=== PATIENT | female | born 1970 | race Asian ===

== ENCOUNTER 2019-10-05 21:16 | Emergency (ER) | payer SELFPAY ==
[~2019-10-05] VITALS: Ht 172.7 cm; Wt 72.6 kg
[2019-10-05 22:08] LABS: Basophils # (auto) 0.1 10 ^3/uL (0-0.2); Basophils % (auto) 0.8 % (0.0-2.0); Eosinophils # (auto) 0.1 10 ^3/uL (0-0.8); Eosinophils % (auto) 1.8 % (0.0-7.0); Hematocrit 40.2 % (36.0-46.0); Hemoglobin 13.1 g/dL (12.2-16.2); Lymphocytes # (auto) 2.6 10 ^3/uL (0.4-5.4); Mean Corpuscular Hemoglobin 29.4 pg (28.0-32.0); Mean Corpuscular Hgb Conc. 32.7 g/dL (32.0-36.0); Mean Corpuscular Volume 89.9 fL (80.0-100.0); Monocytes # (auto) 0.5 10 ^3/uL (0-1.3); Monocytes % (auto) 5.9 % (0.0-12.0); Neutrophils % (auto) 60.5 % (37.0-80.0); Nucleated Red Blood Cells % 0.1 %; Platelet Count (auto) 218 10^3/uL (140-450); Red Blood Cells 4.47 10^6/uL (4.0-5.20); Red Cell Distribution Width 13.5 % (11.8-14.3); White Blood Cell 8.2 10^3/uL (4.4-10.8)
[2019-10-05 22:27] LABS: Albumin 3.6 g/dL (3.4-5.0); Calcium 8.9 mg/dL (8.5-10.1); Potassium 3.9 mmol/L (3.5-5.1)
[2019-10-05 22:30] LABS: BUN/Creatinine Ratio 17.6
[2019-10-05 22:43] LABS: Bilirubin, Total 0.5 mg/dL (0.2-1.0); Total Protein 7.7 g/dL (6.4-8.2)
[2019-10-05 22:57] LABS: Amylase 76 U/L (25-115); Lipase 139 U/L (73-393)
[2019-10-05] MEDS ORDERED: PANTOPRAZOLE 40 MG TAB PO ONE (23:00)
[2019-10-05] MEDS ORDERED: ONDANSETRON ODT 4 MG TAB PO ONE (23:00)
[2019-10-05] MEDS ORDERED: traMADol HCL 50 MG TAB PO ONE (23:00)
[2019-10-06 00:19] LABS: Urine Bacteria NONE SEEN /hpf (None Seen); Urine Blood 3+ /uL (Negative); Urine Mucus FEW (None Seen); Urine Specific Gravity 1.025 (1.001-1.035); Urine WBC 6 /hpf (0 - 5)
[2019-10-06 00:32] LABS: Alcohol, Urine < 3.0 mg/dL (0-10); Amphetamine Screen, Urine NEGATIVE (NEGATIVE); Barbiturate Scree,Urine NEGATIVE (NEGATIVE); Benzodiazephine Screen, Urine NEGATIVE (NEGATIVE); Cannabinoid Screen, Urine NEGATIVE (NEGATIVE); Cocaine Screen, Urine NEGATIVE (NEGATIVE); Opiate Scree,Urine NEGATIVE (NEGATIVE); Phencyclidine Screen, Urine NEGATIVE (NEGATIVE)
[2019-10-06 01:15] VITALS: BP 145/69
== END 2019-10-06 01:19 | disposition home or self-care (01) ==
LOC: ER 21:19
DX: K29.70 Gastritis, unspecified, without bleeding (principal); K80.20 Calculus of gallbladder without cholecystitis without obstruction; N20.0 Calculus of kidney; Z88.5 Allergy status to narcotic agent; Z88.6 Allergy status to analgesic agent
CPT/HCPCS: 36415; 74176; 76705; 80053; 80307; 81001; 82150; 83690; 85025; 93005; 99285; Q0162

== ENCOUNTER 2021-11-20 20:04 | Emergency (ER) | payer MEDICAID ==
[~2021-11-20] VITALS: Ht 172.7 cm; Wt 71.4 kg
[2021-11-20 20:31] VITALS: BP 146/84
== END 2021-11-20 22:25 | disposition left against medical advice (07) ==
LOC: ER 20:04
DX: S50.861A Insect bite (nonvenomous) of right forearm, initial encounter (principal); Z53.21 Procedure and treatment not carried out due to patient leaving prior to being seen by health care provider

== ENCOUNTER 2023-12-21 16:13 | Emergency (ER) | payer MEDICAID ==
[~2023-12-21] VITALS: Ht 172.7 cm; Wt 75.1 kg
[2023-12-21 16:34] LABS: Urine Bacteria None Seen /hpf (None Seen)
[2023-12-21 16:55] LABS: Urine Blood Negative /uL (Negative); Urine Clarity Clear (Clear); Urine Color Colorless (Yellow); Urine Protein, UAD Negative (Negative); Urine Specific Gravity 1.005 (1.001-1.035); Urine Urobilinogen Normal (Negative); Urine WBC 2 /hpf (0 - 5); Urine pH 6.5 (5.0-9.0)
[2023-12-21 17:02] LABS: Basophils # (auto) 0 10 ^3/uL (0-0.2); Basophils % (auto) 0.5 % (0.0-2.0); Eosinophils # (auto) 0.1 10 ^3/uL (0-0.8); Eosinophils % (auto) 0.9 % (0.0-7.0); Hematocrit 40.7 % (36.0-46.0); Hemoglobin 13.8 g/dL (12.2-16.2); Lymphocytes # (auto) 1.5 10 ^3/uL (0.4-5.4); Lymphocytes % (auto) 15.3 % (10.0-50.0); Mean Corpuscular Hemoglobin 29.9 pg (28.0-32.0); Mean Corpuscular Hgb Conc. 33.9 g/dL (32.0-36.0); Mean Corpuscular Volume 88.3 fL (80.0-100.0); Monocytes # (auto) 0.4 10 ^3/uL (0-1.3); Monocytes % (auto) 4.3 % (0.0-12.0); Neutrophils # (auto) 7.7 10 ^3/uL (1.6-8.6); Nucleated Red Blood Cells % 0.1 %; Platelet Count (auto) 201 10^3/uL (140-450); Red Cell Distribution Width 13.1 % (11.8-14.3); White Blood Cell 9.7 10^3/uL (4.4-10.8)
[2023-12-21 17:14] LABS: INR 1.01 (0.9-1.15); Partial Thromboplastin Time 27.9 SEC (24.5-34.5); Prothrombin Time 10.7 sec (9.3-11.8)
[2023-12-21 17:16] LABS: Alanine Aminotransferase 16 U/L (7-40); Albumin 4.4 g/dL (3.2-4.8); Alkaline Phosphatase 96 U/L (46-116); Anion Gap 7 (5-15); Aspartate Aminotransferase 18 U/L (13-40); BUN/Creatinine Ratio 12.5 (10.0-20.0); Bilirubin, Total 0.5 mg/dL (0.2-1.0); Blood Urea Nitrogen 10 mg/dL (9-23); Calcium 9.6 mg/dL (8.7-10.4); Carbon Dioxide 28 mmol/L (20-31); Chloride 105 mmol/L (98-107); Glucose 109 mg/dL (74-106); Potassium 3.6 mmol/L (3.5-5.1); Sodium 140 mmol/L (136-145)
[2023-12-21 17:17] LABS: Total Protein 7.7 g/dL (5.7-8.2)
[2023-12-21 18:01] VITALS: TEMP 99
[2023-12-21 18:06] VITALS: PULSE 97; RESP 16; O2SAT 96
[2023-12-21] MEDS: PANTOPRAZOLE 40 MG TAB PO ONE (19:00)
[2023-12-21 19:03] VITALS: BP 164/110; PULSE 98; RESP 16; O2SAT 96
== END 2023-12-21 19:10 | disposition home or self-care (01) ==
LOC: ER 16:13
DX: K62.5 Hemorrhage of anus and rectum (principal); K59.00 Constipation, unspecified; K60.2 Anal fissure, unspecified; Z98.890 Other specified postprocedural states; Z88.8 Allergy status to other drugs, medicaments and biological substances
CPT/HCPCS: 36415; 74176; 80053; 81001; 83605; 85025; 85610; 85730; 86850; 86900; 86901

== ENCOUNTER 2024-10-27 03:49 | Inpatient (IN) | payer MEDICAID ==
[2024-10-27] VITALS (8 sets, daily range): BP systolic 118–141; BP diastolic 62–74; PULSE 78–96; RESP 15–18; TEMP 97.9–98.7; O2SAT 94–98
[~2024-10-27] VITALS: Ht 172.7 cm; Wt 80.1 kg
--- NOTE | 2024-10-27 04:09 | ED.PDOC ---
General HPI Comments 54-year-old female came to ER for flank pains. Patient does have history of kidney stones and gallstones. States she woke up at 2:30 a.m., due to sudden onset left flank pains, associated with dysuria and inability to void since 2:30 a.m.. Noted 2 episodes of vomiting, anterior episodes of diarrhea. Symptoms p ersisted prompted check up to the ER. Upon arrival blood pressure was 197/104 mm Hg Chief Complaint: Flank Pain Time Seen by MD: 04:08 Primary Care Provider: PRESTON Reviewed notes: Nurses Notes Allergies: Coded Allergies: Aspirin (Verified Allergy, Unknown, 10/05/19) Codeine (Verified Allergy, Unknown, 10/05/19) Morphine (Verified Allergy, Unknown, 12/21/23) Information Source: Patient Mode of Arrival: Ambulatory Severity: Moderate Inability to void: Moderate Timing: Hours Duration: Since onset Has not urinated for: Hours Prehospital treatment: None Onset: Spontaneous Symptoms: Inability to void History of: Kidney stone Location: (L)Flank associated signs and symptoms: Abdominal Pain, Nausea, Vomiting, Flank Pain, Dysuria, Inability to Void Past Medical History PAST MEDICAL HISTORY: Gallstones, Kidney Stones Surgical History: Denies all surgeries SENIOR DIGITAL DESIGNER History: No Pertinent SENIOR DIGITAL DESIGNER History Family History Family History: Reviewed,noncontributory to illness Social History Smoker: Non-Smoker Alcohol: Denies ETOH Use Drugs: Denies Drug Use Lives In: Home Constitutional: denies: chills, diaphoresis, fatigue, fever, malaise, sweats, w eakness, others EENTM: denies: blurred vision, double vision, ear bleeding, ear discharge, ear drainage, ear pain, ear ringing, eye pain, eye redness, hearing loss, mouth pain, mouth swelling, nasal discharge, nose bleeding, nose congestion, nose pain, photophobia, tearing, throat pain, throat swelling, voice changes, others Respiratory: denies: cough, hemoptysis, orthopnea, SOB at rest, shortness of breath, SOB with excertion, stridor, wheezing, others Cardiovascular: denies: chest pain, dizzy spells, diaphoresis, Dyspnea on exertion, edema, irregular heart beat, left arm pain, lightheadedness, palpitations, PND, syncope, others Gastrointestinal: denies: abdomen distended, abdominal pain, blood streaked bowels, constipated, diarrhea, dysphagia, difficulty swallowing, hematemesis, melena, nausea, poor appetite, poor fluid intake, rectal bleeding, rectal pain, vomiting, others Genitourinary: reports: dysuria, flank pain, others (Urinary retention); denies: abnormal vagina bleeding, burning, dyspareunia, frequency, hematuria, incontinence, pain, , vagina discharge, urgency Neurological: denies: dizziness, fainting, headache, left sided numbness, left sided weakness, numbness, paresthesia, pre-existing deficit, right sided numbness, right sided weakness, seizure, speech problems, tingling, tremors, weakness, others Musculoskeletal: denies: back pain, gout, joint pain, joint swelling, muscle pain, muscle stiffness, neck pain, others Integumetry: denies: bruises, change in color, change in hair/nails, dryness, laceration, lesions, lumps, rash, wounds, others Allergic/Immunocompromised: denies: Difficulty Healing, Frequent Infections, Hives, Itching, others Hematologic/Lymphatic: denies: anemia, blood clots, easy bleeding, easy bruis ing, swollen glands, others Endocrine: denies: excessive hunger, excessive sweating, excessive thirst, exc essive urination, flushing, intolerance to cold, intolerance to heat, unexplained weight gain, unexplained weight loss, others Psychiatric: denies: anxiety, bipolar disorder, depression, hopeless, panic disorder, schizophrenia, sleepless, suicidal, others Physical Exam General Appearance: No Apparent Distress, Normal HEENT: Normal ENT Inspection, Pharynx Normal, TMs Normal Neck: Full Range of Motion, Non-Tender, Normal, Normal Inspection Respiratory: Chest Non-Tender, Lungs Clear, No Accessory Muscle Use, No Resp iratory Distress, Normal Breath Sounds Cardiovascular: No Edema, No JVD, No Murmur, No Gallop, Normal Peripheral Pulses, Regular Rate/Rhythm Breast Exam: Deferred Gastrointestinal: No Organomegaly, Non Tender, No Pulsatile Mass, Normal Bowel Sounds, Soft Genitalia: Deferred Pelvic: Deferred Rectal: Deferred Extremities: No calf tenderness, Normal capillary refill, Normal inspection, Normal range of motion, Non-tender, No pedal edema Musculoskeletal : Apperance: Normal Neurologic: Alert, linux 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 Was a procedure done?: No Differential Diagnosis Kidney stone (Female): Musculoskeletal pain, Ovarian torsion, Pancreatitis, Pyelonephritis, Renal failure, Strain, Urinary obstruction, Urolithiasis Urinary Problem (Female): Pyelonephritis, Urinary retention, Urolithiasis, UTI X-Ray, Labs, Meds, VS Vital Signs Date Time Temp Pulse Resp B/P (MAP) Pulse Ox O2 Delivery O2 Flow Rate FiO2 10/27/24 03:52 98.1 80 18 197/105 98 98.1 Lab Test 10/27/24 04:53 10/27/24 04:33 Range/Units Urine Color Colorless Yellow Urine Clarity Ex.turbid Clear Urine pH 6.0 5.0-9.0 Urine Specific [place] 1.019 1.001-1.035 Urine Protein Trace H Negative Urine Ketones Negative Negative Urine Blood 3+ H Negative /uL Urine Nitrite Negative Negative Urine Bilirubin Negative Negative Urine Urobilinogen Normal Negative mg/dL Urine Leukocyte Esterase 3+ Negative /uL Urine RBC 225 0 - 4 /hpf Urine Microscopic WBC 16 H 0-5 /HPF Urine Squamous Epithelial Cells Few <5 /hpf Urine Bacteria None seen None Seen /hpf Urine Mucus Few None Seen Urine Glucose Normal Normal mg/dL White Blood Count 8.0 4.4-10.8 10^3/uL Red Blood Count 4.76 4.0-5.20 10^6/uL Hemoglobin 14.3 12.2-16.2 g/dL Hematocrit 42.1 36.0-46.0 % Mean Corpuscular Volume 88.3 80.0-100.0 fL Mean Corpuscular Hemoglobin 30.0 28.0-32.0 pg Mean Corpuscular Hemoglobin Concent 34.0 32.0-36.0 g/dL Red Cell Distribution Width 13.6 11.8-14.3 % Platelet Count 223 140-450 10^3/uL Mean Platelet Volume 9.8 6.9-10.8 fL Neutrophils (%) (Auto) 75.1 37.0-80.0 % Lymphocytes (%) (Auto) 19.3 10.0-50.0 % Monocytes (%) (Auto) 4.0 0.0-12.0 % Eosinophils (%) (Auto) 0.9 0.0-7.0 % Basophils (%) (Auto) 0.7 0.0-2.0 % Neutrophils # (Auto) 6.0 1.6-8.6 10 ^3/uL Lymphocytes # (Auto) 1.5 0.4-5.4 10 ^3/uL Monocytes # (Auto) 0.3 0-1.3 10 ^3/uL Eosinophils # (Auto) 0.1 0-0.8 10 ^3/uL Basophils # (Auto) 0.1 0-0.2 10 ^3/uL Nucleated Red Blood Cells 0.2 % Sodium Level Pending Potassium Level Pending Chloride Level Pending Carbon Dioxide Level Pending Anion Gap Pending Blood Urea Nitrogen Pending Creatinine Pending Glomerular Filtration Rate Calc Pending BUN/Creatinine Ratio Pending Serum Glucose Pending Calcium Level Pending Total Bilirubin Pending Aspartate Amino Transferase (AST) Pending Alanine Aminotransferase (ALT) Pending Alkaline Phosphatase Pending Total Protein Pending Albumin Pending Lipase Pending Current Medications Medications (Trade) Dose Ordered Sig/Alanna Route Start Time Stop Time Status Last Admin Acetaminophen/ Hydrocodone Bitart ([place] 10/325MG Tab) 1 tab ONCE ONCE PO 10/27/24 04:15 10/27/24 04:16 DC 10/27/24 04:30 Ondansetron HCl ([place] Po) 4 mg ONCE ONCE PO 10/27/24 04:15 10/27/24 04:16 DC 10/27/24 04:30 Exam: CT CT AB PEL WO CON-NO ORAL OR IV History: Flank pain Comparison Study: CT CT AB PEL WO CON-NO ORAL OR IV on DOS: 12/21/23 Technique: Multidetector spiral CT of the abdomen and pelvis was performed from lung bases to pubic symphysis. Imaging was performed without intravenous contrast. Coronal and sagittal multiplanar reformats were obtained from the axial data set by the technologist. Radiation Dose : 1. Abdomen/Pelvis: CTDIvol 12.4 mGy, DLP 727.9 mGy*cm. Findings: Evaluation of vasculature and solid organs is limited due to lack of intravenous contrast use. Lung Bases: Lung bases are clear. Visualized portions of the heart and pericardium are unremarkable. Liver: The liver is normal in size. No focal lesions. Gallbladder and Biliary Tree: The gallbladder contains several gallstones. No intrahepatic or extrahepatic biliary ductal dilatation. Spleen: Unremarkable Pancreas: The pancreas is grossly unremarkable. Adrenal Glands: Unremarkable Kidneys: There is mild left hydronephrosis due to a 3 mm obstructing calculus in the left ureterovesical junction. There is a nonobstructive calculus in the lower pole of the left kidney measuring 2 mm. GI tract: The stomach is grossly normal in appearance. No evidence of small bowel wall thickening or abnormal dilatation to suggest bowel obstruction. Colonic diverticulosis without acute diverticulitis. The appendix is visualized and is normal. Peritoneum/mesentery/retroperitoneum. No evidence of free intraperitoneal air. No ascites. No evidence of suspicious lymphadenopathy. Abdominal Wall: Unremarkable. Vasculature: The visualized abdominal aorta is normal in size and caliber. Evaluation of abdominal and pelvic vessels is limited due to lack of intravenous contrast. Urinary Bladder: Grossly unremarkable for degree of distention. Pelvic Organs: Unremarkable Musculoskeletal: No aggressive focal bony lesions, acute fractures or dislocation. IMPRESSION: 1. Mild left hydronephrosis due to a 3 mm obstructing calculus in the left ureterovesical junction. Additional nonobstructive left nephrolithiasis. 2. Cholelithiasis. 3. Colonic diverticulosis without acute diverticulitis. Time of 1ST Reevaluation: 04:03 Reevaluation 1ST: Unchanged Patient Education/Counseling: Diagnosis, Treatment Family Education/Counseling: Diagnosis, Treatment SEPSIS Sepsis Screen Date sepsis recognized/suspect: Oct 27, 2024 Time Sepsis recognized/suspect: 035 Recent Procedure: No On Antibiotic Therapy: No Respiratory Rate >20: No Heart Rate >90: Yes Temp<36 C (96.8 F) or >38.3 C: No SBP <90 or MAP <65 mmHG: No New Acute Mental Status Change: No Is the patient on CPAP, BIPAP,: No Physician Orders Comprehensive Metabolic Panel (10/27/24 03:56) Lipase (10/27/24 03:56) Ct Ab Pel Wo Con-No Oral Or Iv (10/27/24 03:56) Straightcath If Unable To Void (10/27/24 04:29) Lactic Acid W/ Reflex Order (10/27/24 05:39) Blood Culture (10/27/24 05:39) Ceftriaxone Ivpb Rocephin (10/27/24 05:45) Vital Signs Date Time Temp Pulse Resp B/P (MAP) Pulse Ox O2 Delivery O2 Flow Rate FiO2 10/27/24 03:52 98.1 80 18 197/105 98 98.1 Laboratory Tests Test 10/27/24 04:33 White Blood Count 8.0 10^3/uL (4.4-10.8) Medications Medications Dose Ordered Sig/Alanna Route Start Time Stop Time Status Last Admin Dose Admin Acetaminophen/ Hydrocodone Bitart 1 tab ONCE ONCE PO 10/27/24 04:15 10/27/24 04:16 DC 10/27/24 04:30 Ondansetron HCl 4 mg ONCE ONCE PO 10/27/24 04:15 10/27/24 04:16 DC 10/27/24 04:30 Departure 1 Departure Time of Disposition: 05:40 Impression: Primary Impression: Ureteral calculus, left Additional Impression: UTI (urinary tract infection) Disposition: ADMITTED INPATIENT Admit to: Med Surg Condition: Guarded Comments 54-year-old female with dysuria and left flank pain. She appears to have a ureteral calculus in the left ureter with some hydronephrosis. She also has 3+ blood and 3+ leukocytes in her urine. I suspect UTI with a ureteral stone. Patient is still having pain on re-evaluation. Patient will need to be admitted for IV antibiotics and Urology consultation Critical Care Note Critical Care Time?: Yes (35 min-critical care time only) Critical care comment: Total critical care time: Approximately 36 minutes Due to a high probability of clinically significant, life threatening deterioration, the patient required my highest level of preparedness to intervene emergently and I personally spent this critical care time directly and personally managing the patient. This critical care time included obtaining a history; examining the patient; pulse oximetry; ordering and review of studies; arranging urgent treatment with development of a management plan; evaluation of patient's response to treatment; frequent reassessment; and, discussions with other providers. This critical care time was performed to assess and manage the high probability of imminent, life-threatening deterioration that could result in multi-organ failure. It was exclusive of separately billable procedures and treating other patients. Stability Stability form required: No Heart Score Heart Score: Heart Score Response (Comments) Value History N/A 0 EKG N/A 0 Age N/A 0 Risk Factors N/A 0 Troponin N/A 0 Total 0 I personally scribed for JENNIFER AUSTIN MD ([email or web address]) on 10/27/24 at 04:08. Electronically submitted by Ty Gonzalez ([facility]). I personally scribed for JENNIFER AUSTIN MD ([email or web address]) on 10/27/24 at 05:25. Electronically submitted by Ty Gonzalez ([facility]). JENNIFER AUSTIN MD Oct 27, 2024 04:08
[2024-10-27] MEDS: ONDANSETRON ODT 4 MG TAB PO ONE (04:30)
[2024-10-27] MEDS: HYDROcodone-ACET 10/325MG TAB PO ONE (04:30)
--- NOTE | 2024-10-27 04:36 | DVH ---
Exam: CT CT AB PEL WO CON-NO ORAL OR IV History: Flank pain Comparison Study: CT CT AB PEL WO CON-NO ORAL OR IV on DOS: 12/21/23 Technique: Multidetector spiral CT of the abdomen and pelvis was performed from lung bases to pubic s ymphysis. Imaging was performed without intravenous contrast. Coronal and sagittal multiplanar reform ats were obtained from the axial data set by the technologist. Radiation Dose : 1. Abdomen/Pelvis: CTDIvol 12.4 mGy, DLP 727.9 mGy*cm. Findings: Evaluation of vasculature and solid organs is limited due to lack of intravenous contrast use. Lung Bases: Lung bases are clear. Visualized portions of the heart and pericardium are unremarkable. Liver: The liver is normal in size. No focal lesions. Gallbladder and Biliary Tree: The gallbladder contains several gallstones. No intrahepatic or extrah epatic biliary ductal dilatation. Spleen: Unremarkable Pancreas: The pancreas is grossly unremarkable. Adrenal Glands: Unremarkable Kidneys: There is mild left hydronephrosis due to a 3 mm obstructing calculus in the left ureterovesi jerry junction. There is a nonobstructive calculus in the lower pole of the left kidney measuring 2 mm. GI tract: The stomach is grossly normal in appearance. No evidence of small bowel wall thickening or abnormal dilatation to suggest bowel obstruction. Colonic diverticulosis without acute diverticulitis . The appendix is visualized and is normal. Peritoneum/mesentery/retroperitoneum. No evidence of free intraperitoneal air. No ascites. No evidenc e of suspicious lymphadenopathy. Abdominal Wall: Unremarkable. Vasculature: The visualized abdominal aorta is normal in size and caliber. Evaluation of abdominal a nd pelvic vessels is limited due to lack of intravenous contrast. Urinary Bladder: Grossly unremarkable for degree of distention. Pelvic Organs: Unremarkable Musculoskeletal: No aggressive focal bony lesions, acute fractures or dislocation. IMPRESSION: 1. Mild left hydronephrosis due to a 3 mm obstructing calculus in the left ureterovesical junction. A dditional nonobstructive left nephrolithiasis. 2. Cholelithiasis. 3. Colonic diverticulosis without acute diverticulitis.
[2024-10-27 05:28] LABS: Urine Protein, UAD TRACE (Negative)
[2024-10-27 05:31] LABS: Hematocrit 42.1 % (36.0-46.0); Hemoglobin 14.3 g/dL (12.2-16.2); Mean Corpuscular Hemoglobin 30.0 pg (28.0-32.0); Mean Corpuscular Volume 88.3 fL (80.0-100.0); Nucleated Red Blood Cells % 0.2 %
[2024-10-27 05:42] LABS: Alanine Aminotransferase 14 U/L (7-40); Albumin 4.7 g/dL (3.2-4.8); Alkaline Phosphatase 84 U/L (46-116); Anion Gap 10 (5-15); BUN/Creatinine Ratio 13.8 (10.0-20.0); Blood Urea Nitrogen 12 mg/dL (9-23); Calcium 9.3 mg/dL (8.7-10.4); Carbon Dioxide 28 mmol/L (20-31); Chloride 103 mmol/L (98-107); Lipase 38 U/L (12-53); Potassium 3.6 mmol/L (3.5-5.1); Sodium 141 mmol/L (136-145)
[2024-10-27 05:43] LABS: Bilirubin, Total 0.5 mg/dL (0.2-1.0)
[2024-10-27 05:46] LABS: Glucose 125 mg/dL (74-106); Total Protein 8.2 g/dL (5.7-8.2)
[2024-10-27] MEDS ORDERED: DOCUSATE SOD 100 MG CAP PO PRN (09:30)
[2024-10-27] MEDS ORDERED: HYDROcodone-ACET 5/325MG TAB PO PRN (09:30)
--- NOTE | 2024-10-27 09:34 | DVHHP2 ---
History of Present Illness Reason for Visit: Flank pain History of Present Illness Michelle Kelley is a 54-year-old female with past medical history of gallstones and kidney stones who came to the hospital due to left flank pain. The pain woke her up about 0230 this morning. When she awoken she was not able to urinate at first. Once she was able to urinate it was very painful. Patient states she knew she had gallstones and thought that was causing her pain. Past Surgical History: None Smoke: No ALCOHOL: none Drugs: None Lives: with Family Domestic Violence: Neg Review of Systems Constitutional: No: Fever, Chills, Sweats, Weakness, Malaise, Other Eyes: No: Pain, Vision change, Conjunctivae inflammation, Eyelid inflammation, Other, Redness ENT: No: Ear pain, Ear discharge, Nose pain, Nose discharge, Nose congestion, Mouth pain, Mouth swelling, Throat pain, Throat swelling, Other Respiratory: No: Cough, Dry, Shortness of breath, SOB with excertion, Wheezing, Hemoptysis, Pleuritic Pain, Sputum, Wheezing, Other Cardiovascular: No: Chest Pain, Palpitations, Orthopnea, Paroxysmal Noc. Dyspnea, Edema, Lt Headedness, Other Gastrointestinal: Nausea, Abdominal Pain (pelvic pain, LLQ); No: Vomiting, Diarrhea, Constipation, Melena, Hematochezia, Other Genitourinary: Dysuria; No Frequency, No Incontinence, No Hematuria; Retention; No Other Musculoskeletal: back pain (left flank pain); No: other, neck pain, shoulder pain, arm pain, hand pain, leg pain, foot pain Skin: No: Rash, Lesions, Jaundice, Bruising, Other Neurological: No: Weakness, Numbness, Incoordination, Change in speech, Confusion, Seizures, Other Allergies: Coded Allergies: Aspirin (Verified Allergy, Unknown, 10/05/19) Codeine (Verified Allergy, Unknown, 10/05/19) Morphine (Verified Allergy, Unknown, 12/21/23) Exam Vital Signs Vital Signs Date Time Temp Pulse Resp B/P (MAP) Pulse Ox O2 Delivery O2 Flow Rate FiO2 10/27/24 07:24 84 15 98 Room Air* 0 21 10/27/24 03:52 98.1 197/105 98.1 General Appearance: Alert, Oriented X3, Cooperative, moderate distress HEENT: Atraumatic, PERRLA Respiratory: Clear to auscultation, Normal air movement Cardiovascular: Regular rate, Normal S1, Normal S2, No murmurs Abdominal: Normal bowel sounds, Soft, Other (left pelvic pain, left flank pain) Extremities: No clubbing, No cyanosis, No edema, Normal pulses, No tenderness/swelling Skin: No rashes, No breakdown, No significant lesion Neuro: Normal gait, Normal speech, Strength at 5/5 X4 ext, Normal tone Psych/Mental Status: Mental status NL, Mood NL Labs/Xrays Labs Test 10/27/24 06:04 10/27/24 04:53 10/27/24 04:33 Range/Units Lactic Acid Level 1.1 0.4-2.0 mmol/L Urine Color Colorless Yellow Urine Clarity Ex.turbid Clear Urine pH 6.0 5.0-9.0 Urine Specific [place] 1.019 1.001-1.035 Urine Protein Trace H Negative Urine Ketones Negative Negative Urine Blood 3+ H Negative /uL Urine Nitrite Negative Negative Urine Bilirubin Negative Negative Urine Urobilinogen Normal Negative mg/dL Urine Leukocyte Esterase 3+ Negative /uL Urine RBC 225 0 - 4 /hpf Urine Microscopic WBC 16 H 0-5 /HPF Urine Squamous Epithelial Cells Few <5 /hpf Urine Bacteria None seen None Seen /hpf Urine Mucus Few None Seen Urine Glucose Normal Normal mg/dL White Blood Count 8.0 4.4-10.8 10^3/uL Red Blood Count 4.76 4.0-5.20 10^6/uL Hemoglobin 14.3 12.2-16.2 g/dL Hematocrit 42.1 36.0-46.0 % Mean Corpuscular Volume 88.3 80.0-100.0 fL Mean Corpuscular Hemoglobin 30.0 28.0-32.0 pg Mean Corpuscular Hemoglobin Concent 34.0 32.0-36.0 g/dL Red Cell Distribution Width 13.6 11.8-14.3 % Platelet Count 223 140-450 10^3/uL Mean Platelet Volume 9.8 6.9-10.8 fL Neutrophils (%) (Auto) 75.1 37.0-80.0 % Lymphocytes (%) (Auto) 19.3 10.0-50.0 % Monocytes (%) (Auto) 4.0 0.0-12.0 % Eosinophils (%) (Auto) 0.9 0.0-7.0 % Basophils (%) (Auto) 0.7 0.0-2.0 % Neutrophils # (Auto) 6.0 1.6-8.6 10 ^3/uL Lymphocytes # (Auto) 1.5 0.4-5.4 10 ^3/uL Monocytes # (Auto) 0.3 0-1.3 10 ^3/uL Eosinophils # (Auto) 0.1 0-0.8 10 ^3/uL Basophils # (Auto) 0.1 0-0.2 10 ^3/uL Nucleated Red Blood Cells 0.2 % Sodium Level 141 136-145 mmol/L Potassium Level 3.6 3.5-5.1 mmol/L Chloride Level 103 98-107 mmol/L Carbon Dioxide Level 28 20-31 mmol/L Anion Gap 10 5-15 Blood Urea Nitrogen 12 9-23 mg/dL Creatinine 0.87 0.550-1.02 mg/dL Glomerular Filtration Rate Calc 79 >90 mL/min BUN/Creatinine Ratio 13.8 10.0-20.0 Serum Glucose 125 H 74-106 mg/dL Calcium Level 9.3 8.7-10.4 mg/dL Total Bilirubin 0.5 0.2-1.0 mg/dL Aspartate Amino Transferase (AST) 22 13-40 U/L Alanine Aminotransferase (ALT) 14 7-40 U/L Alkaline Phosphatase 84 46-116 U/L Total Protein 8.2 5.7-8.2 g/dL Albumin 4.7 3.2-4.8 g/dL Lipase 38 12-53 U/L Exam: CT CT AB PEL WO CON-NO ORAL OR IV Findings: Evaluation of vasculature and solid organs is limited due to lack of intravenous contrast use. Lung Bases: Lung bases are clear. Visualized portions of the heart and pericardium are unremarkable. Liver: The liver is normal in size. No focal lesions. Gallbladder and Biliary Tree: The gallbladder contains several gallstones. No intrahepatic or extrahepatic biliary ductal dilatation. Spleen: Unremarkable Pancreas: The pancreas is grossly unremarkable. Adrenal Glands: Unremarkable Kidneys: There is mild left hydronephrosis due to a 3 mm obstructing calculus in the left ureterovesical junction. There is a nonobstructive calculus in the lower pole of the left kidney measuring 2 mm. GI tract: The stomach is grossly normal in appearance. No evidence of small bowel wall thickening or abnormal dilatation to suggest bowel obstruction. Colonic diverticulosis without acute diverticulitis. The appendix is visualized and is normal. Peritoneum/mesentery/retroperitoneum. No evidence of free intraperitoneal air. No ascites. No evidence of suspicious lymphadenopathy. Abdominal Wall: Unremarkable. Vasculature: The visualized abdominal aorta is normal in size and caliber. Evaluation of abdominal and pelvic vessels is limited due to lack of intravenous contrast. Urinary Bladder: Grossly unremarkable for degree of distention. Pelvic Organs: Unremarkable Musculoskeletal: No aggressive focal bony lesions, acute fractures or dislocation. IMPRESSION: 1. Mild left hydronephrosis due to a 3 mm obstructing calculus in the left ureterovesical junction. Additional nonobstructive left nephrolithiasis. 2. Cholelithiasis. 3. Colonic diverticulosis without acute diverticulitis. SEPSIS Sepsis Screen Date sepsis recognized/suspect: Oct 27, 2024 Time Sepsis recognized/suspect: 351 Recent Procedure: No On Antibiotic Therapy: No Respiratory Rate >20: No Heart Rate >90: Yes Temp<36 C (96.8 F) or >38.3 C: No SBP <90 or MAP <65 mmHG: No New Acute Mental Status Change: No Is the patient on CPAP, BIPAP,: No Physician Orders Ct Ab Pel Wo Con-No Oral Or Iv (10/27/24 03:56) Straightcath If Unable To Void (10/27/24 04:29) Blood Culture (10/27/24 05:39) Vital Signs Date Time Temp Pulse Resp B/P (MAP) Pulse Ox O2 Delivery O2 Flow Rate FiO2 10/27/24 07:24 84 15 98 Room Air* 0 21 10/27/24 03:52 98.1 80 18 197/105 98 98.1 Laboratory Tests Test 10/27/24 04:33 10/27/24 06:04 White Blood Count 8.0 10^3/uL (4.4-10.8) Lactic Acid Level 1.1 mmol/L (0.4-2.0) Medications Medications Dose Ordered Sig/Alanna Route Start Time Stop Time Status Last Admin Dose Admin Acetaminophen/ Hydrocodone Bitart 1 tab ONCE ONCE PO 10/27/24 04:15 10/27/24 04:16 DC 10/27/24 04:30 1 TAB Ceftriaxone Sodium/Dextrose 50 ml @ 50 mls/hr ONCE ONCE IV 10/27/24 05:45 10/27/24 06:44 DC 10/27/24 05:54 50 MLS/HR Ondansetron HCl 4 mg ONCE ONCE PO 10/27/24 04:15 10/27/24 04:16 DC 10/27/24 04:30 4 MG Assessment/Plan Assessment/Plan Assessment: Ureteral calculus, left, Left hydronephrosis, UTI, Plan: Admit to Med-Surg, IV antibiotics, IV hydration, Flomax, Pain management, Strain all urine, Consider IR consult if hydronephrosis worsens, Consider Urology consult if symptoms worsen, Plan discussed with: Patient, Spouse Date of Service: Oct 27, 2024 Billing Provider: ARIS AVENDANO Common Visit Codes: [id number] INP/OBS CARE (MOD) ARIS AVENDANO Oct 27, 2024 09:34
[2024-10-27] MEDS: SODIUM CHLORIDE 0.9% 2,000 ML IV ONE (10:17)
[2024-10-27] MEDS: SODIUM CHLORIDE 0.9% 1,000 ML IV ONE (11:21)
[2024-10-27] MEDS: TAMSULOSIN HYDROCHLORIDE 0.4 MG CAP PO ONE (11:30)
[2024-10-27] MEDS: ONDANSETRON HCL 4 MG/2 ML VIAL IV PRN (17:28)
[2024-10-27] MEDS: KETOROLAC TROMETH 30 MG/ML 1ML VIAL IV PRN (17:28)
[2024-10-28] VITALS (8 sets, daily range): BP systolic 119–137; BP diastolic 72–90; PULSE 70–87; RESP 16–20; TEMP 97.2–98.2; O2SAT 94–98
[2024-10-28 05:12] LABS: Hematocrit 35.7 % (36.0-46.0); Hemoglobin 12.3 g/dL (12.2-16.2); Mean Corpuscular Hemoglobin 30.2 pg (28.0-32.0); Mean Corpuscular Volume 87.4 fL (80.0-100.0); Nucleated Red Blood Cells % 0.1 %
[2024-10-28 05:24] LABS: Alanine Aminotransferase 12 U/L (7-40); Albumin 3.5 g/dL (3.2-4.8); Alkaline Phosphatase 64 U/L (46-116); Anion Gap 9 (5-15); BUN/Creatinine Ratio 13.3 (10.0-20.0); Blood Urea Nitrogen 12 mg/dL (9-23); Calcium 8.8 mg/dL (8.7-10.4); Carbon Dioxide 27 mmol/L (20-31); Glucose 101 mg/dL (74-106); Potassium 4.0 mmol/L (3.5-5.1); Sodium 144 mmol/L (136-145); Total Protein 6.5 g/dL (5.7-8.2)
[2024-10-28 05:25] LABS: Bilirubin, Total 0.6 mg/dL (0.2-1.0)
[2024-10-28 05:36] LABS: Chloride 108 mmol/L (98-107)
[2024-10-28] MEDS: ACETAMINOPHEN 325 MG TAB PO PRN (05:40)
--- NOTE | 2024-10-28 15:46 | DVHPN2 ---
Subjective The patient is seen and examined at bedside. Still complain of back and flank pain. Reviewed: Care Plan, H&P, Labs, Medications, Previous Orders, Radiology Changes from previous H/P or p: No Changes Eyes: No Pain, No Vision change, No Conjunctivae inflammation, No Eyelid inflammation, No Other, No Redness ENT: No Ear pain, No Ear discharge, No Nose pain, No Nose discharge, No Nose congestion, No Mouth pain, No Mouth swelling, No Throat pain, No Throat swelling, No Other Cardiovascular: No Chest Pain, No Palpitations, No Orthopnea, No Paroxysmal Noc. Dyspnea, No Edema, No Lt Headedness, No Other Respiratory: No Cough, No Dry, No Shortness of breath, No SOB with excertion, No Wheezing, No Hemoptysis, No Pleuritic Pain, No Sputum, No Other Gastrointestinal: Nausea; No Vomiting; Abdominal Pain (pelvic pain, LLQ); No Diarrhea, No Constipation, No Melena, No Hematochezia, No Other Genitourinary: Dysuria; No Frequency, No Incontinence, No Hematuria; Retention; No Other Musculoskeletal: No other, No neck pain, No shoulder pain, No arm pain; back pain (left flank pain); No hand pain, No leg pain, No foot pain Skin: No Rash, No Lesions, No Jaundice, No Bruising, No Other Objective Vitals Vital Signs Date Time Temp Pulse Resp B/P (MAP) Pulse Ox O2 Delivery O2 Flow Rate FiO2 10/28/24 13:00 98.1 81 20 131/78 (95) 96 98.1 10/28/24 08:00 Room Air* 0 21 Intake/Output Intake and Output 10/28/24 07:00 Intake Total 1270 ml Balance 1270 ml Intake Oral 1270 ml # Voids 3 General Appearance: Alert, Oriented X3, Cooperative, No acute distress HEENT: Atraumatic, PERRLA, EOMI, Mucous membr. moist/pink Neck: Supple Lungs: Clear to auscultation, Normal air movement Cardiovascular: Regular rate, Normal S1, Normal S2, No murmurs, Gallops, Rubs Abdomen: Normal bowel sounds, Soft, No tenderness Back: Flank Tenderness Neuro: Cranial nerves 3-12 NL Psych/Mental Status: Mental status NL Medications Current Medications Medications Dose Ordered Sig/Alanna Route Start Time Stop Time Status Last Admin Dose Admin Acetaminophen/ Hydrocodone Bitart 1 tab Q4HP PRN PO 10/27/24 09:30 Ondansetron HCl 4 mg Q4HP PRN IV 10/27/24 09:30 10/27/24 19:30 4 MG Docusate Sodium 100 mg BIDPRN PRN PO 10/27/24 09:30 Acetaminophen 650 mg Q6HP PRN PO 10/27/24 09:30 10/28/24 05:40 650 MG Ceftriaxone Sodium 50 ml @ 100 mls/hr DAILY@09 IV 10/28/24 09:00 10/28/24 10:22 100 MLS/HR Ketorolac Tromethamine 30 mg Q6HPRN PRN IV 10/27/24 09:30 11/01/24 09:29 10/28/24 05:39 30 MG Tamsulosin HCl 0.4 mg QPM PO 10/28/24 18:00 Laboratory Results Laboratory Tests 10/28/24 04:30 Chemistry Test 10/28/24 04:30 Albumin 3.5 g/dL (3.2-4.8) Calcium Level 8.8 mg/dL (8.7-10.4) Total Protein 6.5 g/dL (5.7-8.2) LFT Test 10/28/24 04:30 Alanine Aminotransferase (ALT) 12 U/L (7-40) Alkaline Phosphatase 64 U/L (46-116) Aspartate Amino Transferase (AST) 19 U/L (13-40) Total Bilirubin 0.6 mg/dL (0.2-1.0) Urinalysis Test 10/27/24 04:53 Urine Color Colorless (Yellow) Urine Clarity Ex.turbid (Clear) Urine pH 6.0 (5.0-9.0) Urine Specific [place] 1.019 (1.001-1.035) Urine Protein Trace (Negative) H Urine Ketones Negative (Negative) Urine Blood 3+ /uL (Negative) H Urine Nitrite Negative (Negative) Urine Bilirubin Negative (Negative) Urine Urobilinogen Normal mg/dL (Negative) Urine Leukocyte Esterase 3+ /uL (Negative) Urine RBC 225 /hpf (0 - 4) Urine Microscopic WBC 16 /HPF (0-5) H Urine Squamous Epithelial Cells Few /hpf (<5) Urine Bacteria None seen /hpf (None Seen) Urine Mucus Few (None Seen) Urine Glucose Normal mg/dL (Normal) Microbiology Microbiology Date/Time Source Procedure Growth Status 10/27/24 06:04 Blood Blood Culture - Preliminary NO GROWTH AFTER 24 HOURS OF INCUBATION. Resulted Labs and/or images reviewed: Labs reviewed by me Assessment/Plan Assessment/Plan Ureteral calculus, left, Left hydronephrosis, UTI, Continuing current management. Continuing with IV antibiotic Rocephin. Continuing with IV fluid Drain all urine to look for stone Continuing with Flomax. Discussed with patient regarding to plan of care. Continuing pain medication. This medical document was created using an electronic medical record system with [employer] computerized dictation system. Although this document has been carefully reviewed, there may still be some phonetic and typographical errors. These areas are purely typographical due to imperfections of the software programs, and do not reflect any compromise in the patient's medical care. Plan discussed with: Patient Date of Service: Oct 28, 2024 Billing Provider: BRITTNY CID MD Common Visit Codes: [id number] INP/OBS CARE(HIGH) BRITTNY CID MD Oct 28, 2024 15:46
[2024-10-28] MEDS: TAMSULOSIN HYDROCHLORIDE 0.4 MG CAP PO SCH (17:12)
[2024-10-29] VITALS (7 sets, daily range): BP systolic 123–140; BP diastolic 68–83; PULSE 77–88; RESP 18–20; TEMP 97.5–98.9; O2SAT 94–97
--- NOTE | 2024-10-29 11:29 | DVHPN2 ---
Subjective The patient is seen and examined at bedside. Still complain of back and flank pain. Reviewed: Care Plan, H&P, Labs, Medications, Previous Orders, Radiology Changes from previous H/P or p: No Changes Eyes: No Pain, No Vision change, No Conjunctivae inflammation, No Eyelid inflammation, No Other, No Redness ENT: No Ear pain, No Ear discharge, No Nose pain, No Nose discharge, No Nose congestion, No Mouth pain, No Mouth swelling, No Throat pain, No Throat swelling, No Other Cardiovascular: No Chest Pain, No Palpitations, No Orthopnea, No Paroxysmal Noc. Dyspnea, No Edema, No Lt Headedness, No Other Respiratory: No Cough, No Dry, No Shortness of breath, No SOB with excertion, No Wheezing, No Hemoptysis, No Pleuritic Pain, No Sputum, No Other Gastrointestinal: Nausea; No Vomiting; Abdominal Pain (pelvic pain, LLQ); No Diarrhea, No Constipation, No Melena, No Hematochezia, No Other Genitourinary: Dysuria; No Frequency, No Incontinence, No Hematuria; Retention; No Other Musculoskeletal: No other, No neck pain, No shoulder pain, No arm pain; back pain (left flank pain); No hand pain, No leg pain, No foot pain Skin: No Rash, No Lesions, No Jaundice, No Bruising, No Other Objective Vitals Vital Signs Date Time Temp Pulse Resp B/P (MAP) Pulse Ox O2 Delivery O2 Flow Rate FiO2 10/29/24 08:54 98.2 88 20 134/80 (98) 94 98.2 10/29/24 08:10 Room Air* 0 21 Intake/Output Intake and Output 10/29/24 07:00 Intake Total 1750 ml Balance 1750 ml Intake Oral 1700 ml IV Total 50 ml # Voids 10 General Appearance: Alert, Oriented X3, Cooperative, No acute distress HEENT: Atraumatic, PERRLA, EOMI, Mucous membr. moist/pink Neck: Supple Lungs: Clear to auscultation, Normal air movement Cardiovascular: Regular rate, Normal S1, Normal S2, No murmurs, Gallops, Rubs Abdomen: Normal bowel sounds, Soft, No tenderness Back: Flank Tenderness Neuro: Cranial nerves 3-12 NL Psych/Mental Status: Mental status NL Medications Current Medications Medications Dose Ordered Sig/Alanna Route Start Time Stop Time Status Last Admin Dose Admin Acetaminophen/ Hydrocodone Bitart 1 tab Q4HP PRN PO 10/27/24 09:30 Ondansetron HCl 4 mg Q4HP PRN IV 10/27/24 09:30 10/27/24 19:30 4 MG Docusate Sodium 100 mg BIDPRN PRN PO 10/27/24 09:30 Acetaminophen 650 mg Q6HP PRN PO 10/27/24 09:30 10/28/24 05:40 650 MG Ceftriaxone Sodium 50 ml @ 100 mls/hr DAILY@09 IV 10/28/24 09:00 10/29/24 08:33 100 MLS/HR Ketorolac Tromethamine 30 mg Q6HPRN PRN IV 10/27/24 09:30 11/01/24 09:29 10/28/24 05:39 30 MG Tamsulosin HCl 0.4 mg QPM PO 10/28/24 18:00 10/28/24 17:12 0.4 MG Laboratory Results Laboratory Tests 10/28/24 04:30 Urinalysis Test 10/27/24 04:53 Urine Color Colorless (Yellow) Urine Clarity Ex.turbid (Clear) Urine pH 6.0 (5.0-9.0) Urine Specific [place] 1.019 (1.001-1.035) Urine Protein Trace (Negative) H Urine Ketones Negative (Negative) Urine Blood 3+ /uL (Negative) H Urine Nitrite Negative (Negative) Urine Bilirubin Negative (Negative) Urine Urobilinogen Normal mg/dL (Negative) Urine Leukocyte Esterase 3+ /uL (Negative) Urine RBC 225 /hpf (0 - 4) Urine Microscopic WBC 16 /HPF (0-5) H Urine Squamous Epithelial Cells Few /hpf (<5) Urine Bacteria None seen /hpf (None Seen) Urine Mucus Few (None Seen) Urine Glucose Normal mg/dL (Normal) Microbiology Microbiology Date/Time Source Procedure Growth Status 10/27/24 06:04 Blood Blood Culture - Preliminary NO GROWTH AFTER 48 HOURS OF INCUBATION. Resulted Labs and/or images reviewed: Labs reviewed by me Assessment/Plan Assessment/Plan Ureteral calculus, left, Left hydronephrosis, UTI, Continuing current management. Continuing with IV antibiotic Rocephin. Continuing with IV fluid Drain all urine to look for stone Continuing with Flomax. Discussed with patient regarding to plan of care. Continuing pain medication. This medical document was created using an electronic medical record system with [employer] computerized dictation system. Although this document has been carefully reviewed, there may still be some phonetic and typographical errors. These areas are purely typographical due to imperfections of the software programs, and do not reflect any compromise in the patient's medical care. Plan discussed with: Patient Date of Service: Oct 29, 2024 Billing Provider: BRITTNY CID MD Common Visit Codes: [id number] INP/OBS CARE(HIGH) BRITTNY CID MD Oct 29, 2024 11:29
[2024-10-30] VITALS (8 sets, daily range): BP systolic 124–145; BP diastolic 75–85; PULSE 17–90; RESP 16–20; TEMP 97.4–98.8; O2SAT 95–97
--- NOTE | 2024-10-30 12:25 | DVHPN2 ---
Subjective The patient is seen and examined at bedside. Still complain of back and flank pain. Reviewed: Care Plan, H&P, Labs, Medications, Previous Orders, Radiology Eyes: No Pain, No Vision change, No Conjunctivae inflammation, No Eyelid inflammation, No Other, No Redness ENT: No Ear pain, No Ear discharge, No Nose pain, No Nose discharge, No Nose congestion, No Mouth pain, No Mouth swelling, No Throat pain, No Throat swelling, No Other Cardiovascular: No Chest Pain, No Palpitations, No Orthopnea, No Paroxysmal Noc. Dyspnea, No Edema, No Lt Headedness, No Other Respiratory: No Cough, No Dry, No Shortness of breath, No SOB with excertion, No Wheezing, No Hemoptysis, No Pleuritic Pain, No Sputum, No Other Gastrointestinal: Nausea; No Vomiting; Abdominal Pain (pelvic pain, LLQ); No Diarrhea, No Constipation, No Melena, No Hematochezia, No Other Genitourinary: Dysuria; No Frequency, No Incontinence, No Hematuria; Retention; No Other Musculoskeletal: No other, No neck pain, No shoulder pain, No arm pain; back pain (left flank pain); No hand pain, No leg pain, No foot pain Skin: No Rash, No Lesions, No Jaundice, No Bruising, No Other Objective Vitals Vital Signs Date Time Temp Pulse Resp B/P (MAP) Pulse Ox O2 Delivery O2 Flow Rate FiO2 10/30/24 08:35 97.8 89 17 130/81 (97) 97 97.8 10/30/24 08:00 Room Air* 0 21 Intake/Output Intake and Output 10/30/24 07:00 Intake Total 2143 ml Output Total 750 ml Balance 1393 ml Intake Oral 2093 ml IV Total 50 ml Output Urine Total 750 ml # Voids 7 # Bowel Movements 1 General Appearance: Alert, Oriented X3, Cooperative, No acute distress HEENT: Atraumatic, PERRLA, EOMI, Mucous membr. moist/pink Neck: Supple Lungs: Clear to auscultation, Normal air movement Cardiovascular: Regular rate, Normal S1, Normal S2, No murmurs, Gallops, Rubs Abdomen: Normal bowel sounds, Soft, No tenderness Back: Flank Tenderness Neuro: Cranial nerves 3-12 NL Psych/Mental Status: Mental status NL Medications Current Medications Medications Dose Ordered Sig/Alanna Route Start Time Stop Time Status Last Admin Dose Admin Acetaminophen/ Hydrocodone Bitart 1 tab Q4HP PRN PO 10/27/24 09:30 Ondansetron HCl 4 mg Q4HP PRN IV 10/27/24 09:30 10/27/24 19:30 4 MG Docusate Sodium 100 mg BIDPRN PRN PO 10/27/24 09:30 Acetaminophen 650 mg Q6HP PRN PO 10/27/24 09:30 10/28/24 05:40 650 MG Ceftriaxone Sodium 50 ml @ 100 mls/hr DAILY@09 IV 10/28/24 09:00 10/30/24 08:13 100 MLS/HR Ketorolac Tromethamine 30 mg Q6HPRN PRN IV 10/27/24 09:30 11/01/24 09:29 10/28/24 05:39 30 MG Tamsulosin HCl 0.4 mg QPM PO 10/28/24 18:00 10/29/24 17:08 0.4 MG Laboratory Results Laboratory Tests 10/28/24 04:30 Urinalysis Test 10/27/24 04:53 Urine Color Colorless (Yellow) Urine Clarity Ex.turbid (Clear) Urine pH 6.0 (5.0-9.0) Urine Specific [place] 1.019 (1.001-1.035) Urine Protein Trace (Negative) H Urine Ketones Negative (Negative) Urine Blood 3+ /uL (Negative) H Urine Nitrite Negative (Negative) Urine Bilirubin Negative (Negative) Urine Urobilinogen Normal mg/dL (Negative) Urine Leukocyte Esterase 3+ /uL (Negative) Urine RBC 225 /hpf (0 - 4) Urine Microscopic WBC 16 /HPF (0-5) H Urine Squamous Epithelial Cells Few /hpf (<5) Urine Bacteria None seen /hpf (None Seen) Urine Mucus Few (None Seen) Urine Glucose Normal mg/dL (Normal) Microbiology Microbiology Date/Time Source Procedure Growth Status 10/29/24 08:40 Nose MRSA Screen - Final Complete 10/27/24 06:04 Blood Blood Culture - Preliminary NO GROWTH AFTER 72 HOURS OF INCUBATION. Resulted Assessment/Plan Assessment/Plan Ureteral calculus, left, Left hydronephrosis, UTI, Continuing current management. Continuing with IV antibiotic Rocephin. Continuing with IV fluid Drain all urine to look for stone Continuing with Flomax. Discussed with patient regarding to plan of care. Continuing pain medication. This medical document was created using an electronic medical record system with [employer] direct computerized dictation system. Although this document has been carefully reviewed, there may still be some phonetic and typographical errors. These areas are purely typographical due to imperfections of the software programs, and do not reflect any compromise in the patient's medical care. My Orders Orders - BRITTNY CID MD Procedure Category Date Status Time * Urology Consult CONS 10/30/24 Transmitted 12:23 BRITTNY CID MD Oct 30, 2024 12:24
--- NOTE | 2024-10-30 13:07 | DVH ---
Date: 10/30/2024 12:39 PM Examination: XY KUB ABDOMEN SINGLE VIEW History: kidney stone/obstructive uropathy Comparison: CT ABD PELVIS WO CONTRAST on DOS: 10/05/19 TECHNIQUE: Frontal views of the abdomen was obtained. FINDINGS: Bowel gas pattern is unremarkable. The lung bases are unremarkable. No acute osseous abnormality identified. IMPRESSION: Nonobstructive bowel gas pattern. Large stool burden. No radiopaque renal calculi are present.
--- NOTE | 2024-10-30 16:19 | DVHINCON2 ---
Date of service: Oct 30, 2024 Referring Physician hospitalist Reason for Consultation ureteral stone Past Medical History Patient Family History: Diabetes mellitus G8 MOTHER FH: cancer G8 MOTHER G8 FATHER High cholesterol G8 MOTHER Hypercholesterolemia G8 MOTHER Kidney stones G8 MOTHER H&P Exam Vital Signs Vital Signs Date Time Temp Pulse Resp B/P (MAP) Pulse Ox O2 Delivery O2 Flow Rate FiO2 10/30/24 13:24 97.9 87 16 132/78 (96) 97 97.9 10/30/24 08:00 Room Air* 0 21 Labs/Xrays Labs Test 10/28/24 04:30 10/27/24 06:04 10/27/24 04:53 10/27/24 04:33 Range/Units White Blood Count 7.5 4.4-10.8 10^3/uL Red Blood Count 4.09 4.0-5.20 10^6/uL Hemoglobin 12.3 12.2-16.2 g/dL Hematocrit 35.7 #L 36.0-46.0 % Mean Corpuscular Volume 87.4 80.0-100.0 fL Mean Corpuscular Hemoglobin 30.2 28.0-32.0 pg Mean Corpuscular Hemoglobin Concent 34.6 32.0-36.0 g/dL Red Cell Distribution Width 13.5 11.8-14.3 % Platelet Count 188 140-450 10^3/uL Mean Platelet Volume 9.1 6.9-10.8 fL Neutrophils (%) (Auto) 61.4 37.0-80.0 % Lymphocytes (%) (Auto) 28.7 10.0-50.0 % Monocytes (%) (Auto) 7.2 0.0-12.0 % Eosinophils (%) (Auto) 2.1 0.0-7.0 % Basophils (%) (Auto) 0.6 0.0-2.0 % Neutrophils # (Auto) 4.6 1.6-8.6 10 ^3/uL Lymphocytes # (Auto) 2.1 0.4-5.4 10 ^3/uL Monocytes # (Auto) 0.5 0-1.3 10 ^3/uL Eosinophils # (Auto) 0.2 0-0.8 10 ^3/uL Basophils # (Auto) 0 0-0.2 10 ^3/uL Nucleated Red Blood Cells 0.1 % Sodium Level 144 136-145 mmol/L Potassium Level 4.0 3.5-5.1 mmol/L Chloride Level 108 H 98-107 mmol/L Carbon Dioxide Level 27 20-31 mmol/L Anion Gap 9 5-15 Blood Urea Nitrogen 12 9-23 mg/dL Creatinine 0.90 0.550-1.02 mg/dL Glomerular Filtration Rate Calc 76 >90 mL/min BUN/Creatinine Ratio 13.3 10.0-20.0 Serum Glucose 101 74-106 mg/dL Calcium Level 8.8 8.7-10.4 mg/dL Total Bilirubin 0.6 0.2-1.0 mg/dL Aspartate Amino Transferase (AST) 19 13-40 U/L Alanine Aminotransferase (ALT) 12 7-40 U/L Alkaline Phosphatase 64 46-116 U/L Total Protein 6.5 5.7-8.2 g/dL Albumin 3.5 3.2-4.8 g/dL Lactic Acid Level 1.1 0.4-2.0 mmol/L Urine Color Colorless Yellow Urine Clarity Ex.turbid Clear Urine pH 6.0 5.0-9.0 Urine Specific [place] 1.019 1.001-1.035 Urine Protein Trace H Negative Urine Ketones Negative Negative Urine Blood 3+ H Negative /uL Urine Nitrite Negative Negative Urine Bilirubin Negative Negative Urine Urobilinogen Normal Negative mg/dL Urine Leukocyte Esterase 3+ Negative /uL Urine RBC 225 0 - 4 /hpf Urine Microscopic WBC 16 H 0-5 /HPF Urine Squamous Epithelial Cells Few <5 /hpf Urine Bacteria None seen None Seen /hpf Urine Mucus Few None Seen Urine Glucose Normal Normal mg/dL Lipase 38 12-53 U/L Microbiology Date/Time Source Procedure Growth Status 10/29/24 08:40 Nose MRSA Screen - Final Complete 10/27/24 06:04 Blood Blood Culture - Preliminary NO GROWTH AFTER 72 HOURS OF INCUBATION. Resulted Assessment/Plan Problem List: (1) Ureteral calculus, left Plan expulsive measures outpt follow up Plan discussed with: BRENDA Lee NP Oct 30, 2024 16:19
[2024-10-30] MEDS ORDERED: MANNITOL FTV 25% 12.5 GM/50 ML 50 ML IV ONE ×2 (16:30→19:00)
[2024-10-30] MEDS ORDERED: TAMS-35 PO (19:13)
[2024-10-30] MEDS ORDERED: HYDR-4902 PO (19:13)
[2024-10-30] MEDS ORDERED: LEVO500T91 PO (19:13)
--- NOTE | 2024-10-30 19:36 | DVHDS2 ---
Discharge Summary Date of Admission Oct 27, 2024 at 09:27 Date of Discharge: Oct 30, 2024 Admitting Diagnosis Ureteral calculus, left, Left hydronephrosis, UTI, Labs/Diagnostic Data: Laboratory Results Test 10/28/24 04:30 10/27/24 06:04 10/27/24 04:53 10/27/24 04:33 White Blood Count 7.5 10^3/uL (4.4-10.8) Red Blood Count 4.09 10^6/uL (4.0-5.20) Hemoglobin 12.3 g/dL (12.2-16.2) Hematocrit 35.7 % (36.0-46.0) Mean Corpuscular Volume 87.4 fL (80.0-100.0) Mean Corpuscular Hemoglobin 30.2 pg (28.0-32.0) Mean Corpuscular Hemoglobin Concent 34.6 g/dL (32.0-36.0) Red Cell Distribution Width 13.5 % (11.8-14.3) Platelet Count 188 10^3/uL (140-450) Mean Platelet Volume 9.1 fL (6.9-10.8) Neutrophils (%) (Auto) 61.4 % (37.0-80.0) Lymphocytes (%) (Auto) 28.7 % (10.0-50.0) Monocytes (%) (Auto) 7.2 % (0.0-12.0) Eosinophils (%) (Auto) 2.1 % (0.0-7.0) Basophils (%) (Auto) 0.6 % (0.0-2.0) Neutrophils # (Auto) 4.6 10 ^3/uL (1.6-8.6) Lymphocytes # (Auto) 2.1 10 ^3/uL (0.4-5.4) Monocytes # (Auto) 0.5 10 ^3/uL (0-1.3) Eosinophils # (Auto) 0.2 10 ^3/uL (0-0.8) Basophils # (Auto) 0 10 ^3/uL (0-0.2) Nucleated Red Blood Cells 0.1 % Sodium Level 144 mmol/L (136-145) Potassium Level 4.0 mmol/L (3.5-5.1) Chloride Level 108 mmol/L (98-107) Carbon Dioxide Level 27 mmol/L (20-31) Anion Gap 9 (5-15) Blood Urea Nitrogen 12 mg/dL (9-23) Creatinine 0.90 mg/dL (0.550-1.02) Glomerular Filtration Rate Calc 76 mL/min (>90) BUN/Creatinine Ratio 13.3 (10.0-20.0) Serum Glucose 101 mg/dL (74-106) Calcium Level 8.8 mg/dL (8.7-10.4) Total Bilirubin 0.6 mg/dL (0.2-1.0) Aspartate Amino Transferase (AST) 19 U/L (13-40) Alanine Aminotransferase (ALT) 12 U/L (7-40) Alkaline Phosphatase 64 U/L (46-116) Total Protein 6.5 g/dL (5.7-8.2) Albumin 3.5 g/dL (3.2-4.8) Lactic Acid Level 1.1 mmol/L (0.4-2.0) Urine Color Colorless (Yellow) Urine Clarity Ex.turbid (Clear) Urine pH 6.0 (5.0-9.0) Urine Specific [place] 1.019 (1.001-1.035) Urine Protein Trace (Negative) Urine Ketones Negative (Negative) Urine Blood 3+ /uL (Negative) Urine Nitrite Negative (Negative) Urine Bilirubin Negative (Negative) Urine Urobilinogen Normal mg/dL (Negative) Urine Leukocyte Esterase 3+ /uL (Negative) Urine RBC 225 /hpf (0 - 4) Urine Microscopic WBC 16 /HPF (0-5) Urine Squamous Epithelial Cells Few /hpf (<5) Urine Bacteria None seen /hpf (None Seen) Urine Mucus Few (None Seen) Urine Glucose Normal mg/dL (Normal) Lipase 38 U/L (12-53) Other Laboratory Tests 10/28/24 04:30 Brief Hx & Hospital Course: This is a 54 years old female with past medical history of gallstones and kidney stone come to emergency department because left flank pain. The pain woke her up at 2:30 a.m. in the morning. She can not urinate at 1st and then after she able to urinate the pain still not go away. The patient's CT scan abdomen and pelvis showed: Mild left hydronephrosis due to a 3 mm obstructing calculus in the left ureterovesical junction. Additional nonobstructive left nephrolithiasis. Cholelithiasis. Colonic diverticulosis without acute diverticulitis. The patient was admitted. The patient was given mannitol, Flomax and IV fluid. The patient was also put on IV antibiotic with Rocephin 1 g IV q.day. All of the urine strain. We have found no sediment in her urine. However she did not put off for urine in the urine hat. Sometimes she just P without looking Repeat KUB showed no stone. The patient complained of no pain this morning. Urology see the patient recommend no further intervention. Outpatient follow up if continuing to have for flank pain. I am going to discharge the patient home today. Advised the patient to eat a lot of fiber food to prevent constipation. Activity as tolerated. Diet per home diet. Advice to increase fluid intake Physical exam: HEENT: Normocephalic atraumatic pupils equal react to light and accommodation. Extraocular muscles intact, conjunctiva pink, oropharynx moist, no thrush, no exudate. Lymphatic: No lymphadenopathy Cardiovascular exam: S1, S2 was heard. No murmurs, rubs, gallops Lung: Clear on auscultation bilaterally, no wheeze, rale, rhonchi. GI: Abdominal soft, nondistended, nontenderness, positive bowel sounds. Extremity: No crepitus, cyanosis, edema. Pedal pulses present bilateral. Full range of motion. Skin: Normal turgor, no rash. Psych: Alert, oriented x3. Neurology: No focal deficits, cranial nerve II to XII grossly intact. This medical document was created using an electronic medical record system with [employer] computerized dictation system. Although this document has been carefully reviewed, there may still be some phonetic and typographical errors. These areas are purely typographical due to imperfections of the software programs, and do not reflect any compromise in the patient's medical care. Condition at Discharge: Stable Final Diagnosis/Problems List renal colic Ureteral calculus, left, Left hydronephrosis, UTI, Discharge Disposition: Home Discharge Instruct/Medications Diet: Regular Activity: No Restrictions, As Tolerated Medications: see medlist. Scheduled Levofloxacin Hemihydrate (Levaquin 500 Mg), 1 TAB PO DAILY Tamsulosin Hcl (Flomax), 1 CAP PO DAILY Scheduled PRN Hydrocodone-Acetaminophen (Hydrocodone Bitartrate/AC 5-325 mg), 1 TAB PO Q4HP PRN Discharge Statement: "Patient was advised to return to the ER or call 911 if any headaches, dizziness, shortness of breath, chest pain, abdominal pain, bleeding, fevers, or worsening of medical condition. Patient was counseled about treatment plan, medications, possible side effects, patientverbalized understanding. All questions were answered to the best of my ability. This discharge took greater then 30 minutes in planning, reviewing documentation, counseling the patient, and discussing with other team members." ASSESSMENT ASSESSMENT Assessment renal colic Date of Service: Oct 30, 2024 Billing Provider: BRITTNY CID MD Common Visit Codes: [id number]/[id number] DISCH DAY >30min BRITTNY CID MD Oct 30, 2024 19:36
[2024-10-30] MEDS: MANNITOL FTV 25% 12.5 GM/50 ML 50 ML IV ONE (20:15)
== END 2024-10-30 22:07 | disposition home or self-care (01) | DRG 463 ==
LOC: ER 03:49 → OVERFLOW 09:27 → WEST WING 17:48
PROVIDERS: ADMIT Internal Medicine; ATTEND Internal Medicine
DX: N13.6 Pyonephrosis (principal); K57.30 Diverticulosis of large intestine without perforation or abscess without bleeding; K80.20 Calculus of gallbladder without cholecystitis without obstruction; Z83.3 Family history of diabetes mellitus; Z88.5 Allergy status to narcotic agent; Z88.6 Allergy status to analgesic agent; Z79.899 Other long term (current) drug therapy
CPT/HCPCS: 36415; 74018; 74176; 80053; 81001; 83605; 83690; 85025; 87040; 87081; 96365; 99291; G0378; J1885; J2405; Q0162